=== PATIENT | male | born 1985 | race Caucasian/White ===

== ENCOUNTER 2017-05-16 18:03 | Emergency (ER) | payer OTHER ==
[~2017-05-16] VITALS: Ht 180.3 cm; Wt 104.4 kg
[~2017-05-16 18:03] MED LIST: BACTRIM,SEPT1 TABLET PO; CLARITIN10 M3 PO; FIORICET 50-301 EACH PO; FLEXERIL10 MG PO; LORTAB 5-325 M1 EACH PO; NAPROSYN500 MG PO; NOHOMEMEDS; PERCOCET 5/31 TABLET PO; PROMETHAZINE HC25 M1 PO
[2017-05-16 19:21] LABS: HEMATOCRIT 42.1 % (38.0-50.0); HEMOGLOBIN 14.5 G/DL (12.5-16.6); MCH 30.3 PG (29.0-34.0); MCHC 34.4 G/DL (30.0-36.0); MCV 88.1 FL (86-99); PLATELET COUNT 303 K/uL (156-360); RBC DIS.WIDTH-CV 12.6 % (11.8-14.6); RED BLOOD COUNT 4.78 M/uL (4.00-5.50); WHITE BLOOD COUNT 8.7 K/uL (4.1-10.2)
[2017-05-16 19:30] LABS: ALBUMIN 4.7 g/dL (3.2-4.8); CHLORIDE 102 mEq/L (99-109); POTASSIUM 4.2 mEq/L (3.7-5.4); SODIUM 139 mEq/L (136-147)
[2017-05-16 19:33] LABS: GLUCOSE 96 mg/dL (70-99); TOTAL PROTEIN 7.4 g/dL (6.4-8.3)
[2017-05-16 19:34] LABS: TOTAL BILIRUBIN 0.6 mg/dL (0.0-1.0)
[2017-05-16 19:36] LABS: ALKALINE PHOSPHATASE 92 IU/L (3-129); GFR ESTIMATE (CALCULATED) > 59 mL/min/ (58.99-99999)
[2017-05-16 19:37] LABS: UREA NITROGEN (BUN) 11 mg/dL (9-23)
[2017-05-16 19:38] LABS: AST (GOT) 18 IU/L (2-34)
[2017-05-16 19:39] LABS: ALT (GPT) 15 IU/L (3-49)
[2017-05-16 19:58] LABS: LIPASE 16 U/L (1.0-51.0)
[2017-05-16 21:36] LABS: APPEARANCE CLEAR ((CLEAR)); BILIRUBIN NEGATIVE; BLOOD NEGATIVE; COLOR YELLOW ((YELLOW)); GLUCOSE (STRIP) NEGATIVE; KETONES NEGATIVE; LEUKOCYTES NEGATIVE; NITRITE NEGATIVE; PROTEIN (STRIP) NEGATIVE; UCUL ADDED? NO; UROBILINOGEN 0.2 MG/DL (0.2-1.0)
[2017-05-16 21:37] LABS: SPECIFIC GRAVITY > 1.060 (1.000-1.030)
[2017-05-16] MEDS ORDERED: BENTYL20 MG PO (22:40)
[2017-05-16] MEDS ORDERED: ZOFRAN ODT8 MG PO (22:40)
[2017-05-16] MEDS ORDERED: FLAGYL500 MG PO (22:40)
[2017-05-16 23:29] VITALS: BP 126/71
== END 2017-05-16 23:33 | disposition home or self-care (01) ==
LOC: EME 18:03
DX: R10.9 Unspecified abdominal pain (principal); R11.0 Nausea; R19.7 Diarrhea, unspecified; E86.0 Dehydration; K21.9 Gastro-esophageal reflux disease without esophagitis; J45.909 Unspecified asthma, uncomplicated; F17.200 Nicotine dependence, unspecified, uncomplicated; Z86.14 Personal history of Methicillin resistant Staphylococcus aureus infection; Z88.0 Allergy status to penicillin
CPT/HCPCS: 74177; 80053; 81003; 83605; 83690; 85027; 87177; 87329; 87493; 87506; 99281; 99285; C9113; J0500; J2405; J3010; J7030; S0028